=== PATIENT | male | born 1950 | race African-American/Black ===

== ENCOUNTER 2019-05-02 13:10 | Emergency (ER) | payer MEDICARE, OTHER ==
[~2019-05-02] VITALS: Ht 182.9 cm; Wt 73.0 kg
[2019-05-02] MEDS ORDERED: TETANUS, DIPHTHERIA, PERTUSSIS VAC/PF 0.5ML (>7YR OLD) IM ONE (13:30)
[2019-05-02] MEDS ORDERED: IBUPROFEN 600MG TABLET PO ONE (13:30)
[2019-05-02 13:52] VITALS: BP 185/98
[2019-05-02] MEDS ORDERED: BACITRACIN ZINC OINT UDPKT TOP ONE (14:45)
== END 2019-05-02 15:15 | disposition home or self-care (01) ==
LOC: ER 13:10
DX: S63.277A Dislocation of unspecified interphalangeal joint of left little finger, initial encounter (principal); I10 Essential (primary) hypertension; Z86.73 Personal history of transient ischemic attack (TIA), and cerebral infarction without residual deficits; W01.0XXA Fall on same level from slipping, tripping and stumbling without subsequent striking against object, initial encounter; Y93.89 Activity, other specified; Y92.89 Other specified places as the place of occurrence of the external cause; Y99.8 Other external cause status
CPT/HCPCS: 26770; 73140; 90471; 90715; 99284